=== PATIENT | male | born 1995 | race Caucasian/White ===

== ENCOUNTER 2018-06-27 20:44 | Emergency (ER) | payer BC ==
--- NOTE | 2018-06-27 20:58 | EDPHY ---
H & P Stated Complaint: Stiff neck, nausea, generalized weakness, Time Seen by Provider: 06/27/18 20:57 - Personal History Current Tetanus Diphtheria and Acellular Pertussis (TDAP): Yes - Medical/Surgical History Hx Asthma: No Hx Chronic Respiratory Disease: No Hx Diabetes: No Hx Cardiac Disease: No Hx Renal Disease: No Hx Cirrhosis: No Hx Alcoholism: No Hx HIV/AIDS: No Hx Splenectomy or Spleen Trauma: No Other PMH: Denies - Social History Smoking Status: Never smoked Constitutional: Initial Vital Signs Temperature (C) 37.0 C 06/27/18 20:52 Heart Rate 78 06/27/18 20:52 Respiratory Rate 18 06/27/18 20:52 Blood Pressure 119/80 06/27/18 20:52 O2 Sat (%) 97 06/27/18 20:52 O2 Delivery Mode Room Air Allergies/Adverse Reactions: Sulfa (Sulfonamide Antibiotics) Allergy (Verified 06/27/18 20:52) Home Medications: Medication Instructions Recorded Ibuprofen [Motrin] 800 mg PO Q8 #20 tab 06/27/18 Medical Decision Making ED Course/Re-evaluation: CHIEF COMPLAINT: Neck pain, chills, nausea HISTORY OF PRESENT ILLNESS: This patient is a 22 year old male complaining of neck pain, chills, nausea. His symptoms began about two days ago and have worsened since onset. He complains of associated dizziness beginning today. He has pain with range of motion of his neck, particularly in the area of his right paraspinous muscle. He has not vomited. He denies headache, chest pain, shortness of breath, abdominal pain, diarrhea, numbness or paresthesias in his extremities, confusion , or other associated symptoms. He denies recent trauma. REVIEW OF SYSTEMS: A comprehensive 10 system review of systems is otherwise negative aside from elements mentioned in the history of present illness and medical decision making. PHYSICAL EXAM: HR, BP, O2 Sat, RR. Temp noted General Appearance: Alert, well hydrated, appropriate, and non-toxic appearing. Head: Atraumatic without scalp tenderness or obvious injury Eyes: Pupils equal, round, reactive to light and accommodation, EOMI, no trauma , no injection. Ears: Clear bilaterally, no perforation, normal landmarks Nose: Atraumatic, no rhinorrhea, clear. Throat: There is no erythema or exudates, no lesions, normal tonsils, mucus membranes moist. Neck: Supple. Posterior lymphadenopathy. Respiratory: No retractions, no distress, no wheezes, and no accessory muscle use. Lungs are clear to auscultation bilaterally. Cardiovascular: Regular rate and rhythm, no murmurs, rubs, or gallops. Bilateral carotid, radial, dorsalis pedis, and posterior tibial pulses intact. Good capillary refill all extremities. Gastrointestinal: Abdomen is soft, nontender, non-distended, no masses, no rebound, no guarding, no peritoneal signs. Musculoskeletal: Normal active ROM of all extremities, atraumatic. Neurological: Alert, appropriate, and interactive. The patient has normal DTRs and non-focal cranial nerves, motor, sensory, and cerebellar exam. Skin: No rashes, good turgor, no nodules on palpation. Past medical history: Denies Past surgical history: Noncontributory Family history: Noncontributory Social history: Student at [employer]. Single. Lives in [place]. DIFFERENTIAL DIAGNOSIS: The differential diagnosis for the patient's fever included but was not limited to mononucleosis, pneumonia, urinary tract infection, viral syndrome, meningitis , and sepsis. MEDICAL DECISION MAKING: This 22 y/o male presents with two day history of worsening neck pain, chills, nausea, and dizziness. He has posterior lymphadenopathy on exam, pathognomonic for mono. Plan for monospot. Plan to administer 1L IV NS, 30mg IV Toradol. Monospot pending. It may take several hours for this to result. Monospot negative. It may be too early for this test. Plan for EBV panel. Reassessed patient. Plan to discharge home in good condition with prescription for ibuprofen for pain relief. Follow up and return precautions discussed. He has been advised to avoid contact sports. - Data Points Laboratory Results: 06/27/18 06/27/18 21:42 21:42 EBV Capsid Ag IgG Ab Pending EBV Capsid Ag IgM Ab Pending EBV Nuclear Antigen Ab Pending EBV Interpretation Pending Monoscreen NEGATIVE (NEGATIVE) Medications Given: Discontinued Medications Sodium Chloride (Ns) 1,000 mls @ 0 mls/hr IV EDNOW ONE; Wide Open PRN Reason: Protocol Stop: 06/27/18 21:36 Last Admin: 06/27/18 21:44 Dose: 1,000 mls Ketorolac Tromethamine (Toradol) 30 mg IVP EDNOW ONE Stop: 06/27/18 21:36 Last Admin: 06/27/18 21:45 Dose: 30 mg Departure - Departure Disposition: Home, Routine, Self-Care Clinical Impression: Mononucleosis Condition: Good Instructions: Ibuprofen (By mouth), Mononucleosis (ED) Additional Instructions: 1. Follow up with your primary care provider. 2. Rest. Stay well hydrated. Avoid contact sports or any activities that could cause splenic injury. 3. Take ibuprofen as prescribed as needed for pain. 4. Return for high fever, uncontrollable vomiting, severe neck pain or headache , chest pain, shortness of breath, or other worsening of condition. Referrals: Lily Montes MD [[facility] Primary Care Provider] - As per Instructions Prescriptions: Ibuprofen [Motrin] 800 mg PO Q8 #20 tab Report Scribed for: Raymond Mckeon Report Scribed by: Melissa Dunlap Date of Report: 06/27/18 Time of Report: 21:37
[2018-06-27] MEDS ORDERED: NS 1,000 ML IV ONE (21:35)
[2018-06-27] MEDS ORDERED: KETOROLAC 30 MG/1 ML SDV IVP ONE (21:35)
[2018-06-27 22:07] VITALS: BP 120/80
== END 2018-06-27 22:19 | disposition home or self-care (01) ==
DX: B27.90 Infectious mononucleosis, unspecified without complication (principal); E86.9 Volume depletion, unspecified
CPT/HCPCS: 86664-90; 86665-90; 96374; J1885

== ENCOUNTER 2018-08-14 11:36 | Emergency (ER) | payer BC ==
[2018-08-14] MEDS ORDERED: KETOROLAC 30 MG/1 ML SDV IVP ONE (11:56)
[2018-08-14] MEDS ORDERED: ONDANSETRON 4 MG/2 ML VIAL IVP ONE (11:56)
[2018-08-14] MEDS ORDERED: NS 1,000 ML IV ONE (11:56)
--- NOTE | 2018-08-14 11:56 | EDPHY ---
H & P Stated Complaint: Headache, nausea, neck pain Time Seen by Provider: 08/14/18 11:51 HPI/ROS: CHIEF COMPLAINT: Headache, neck pain and fever HISTORY OF PRESENT ILLNESS: The patient presents the ED with several days of headache, neck pain and fever to 101 degrees. The patient sounds as if he was diagnosed clinically with a possible viral meningitis about a month ago. He did not undergo lumbar puncture at that point time. He had improvement of his symptoms. He reports that over the past several days he has developed recurrent symptoms of a fever, headache and some slight neck discomfort. The patient denies significant cough or sore throat. He denies any abdominal pain vomiting or diarrhea. He does report mild associated nausea. He did take ibuprofen earlier today. The patient denies any acute numbness or weakness. The patient denies any diplopia or vision changes. He has no significant past medical history. REVIEW OF SYSTEMS: A comprehensive 10 point review of systems is otherwise negative aside from elements mentioned in the history of present illness. Source: Patient Exam Limitations: No limitations - Personal History Current Tetanus Diphtheria and Acellular Pertussis (TDAP): Yes - Medical/Surgical History Hx Asthma: No Hx Chronic Respiratory Disease: No Hx Diabetes: No Hx Cardiac Disease: No Hx Renal Disease: No Hx Cirrhosis: No Hx Alcoholism: No Hx HIV/AIDS: No Hx Splenectomy or Spleen Trauma: No Other PMH: Clinically diagnosed with viral menigitis 06/2018 - Social History Smoking Status: Never smoked - Physical Exam Exam: General Appearance: Alert, no distress Eyes: Pupils equal and round no pallor or injection ENT, Mouth: Mucous membranes moist Respiratory: There are no retractions, lungs are clear to auscultation Cardiovascular: Regular rate and rhythm Gastrointestinal: Abdomen is soft and nontender, no masses, bowel sounds normal Neurological: A&O, normal motor function, normal sensory exam, normal cranial nerves Skin: Warm and dry, no rashes Musculoskeletal: Neck is supple nontender, mild meningeal symptoms Extremities: symmetrical, full range of motion Psychiatric: Patient is oriented X 3, there is no agitation Constitutional: Initial Vital Signs Temperature (C) 37.1 C 08/14/18 11:39 Heart Rate 85 08/14/18 11:39 Respiratory Rate 16 08/14/18 11:39 Blood Pressure 119/77 08/14/18 11:39 O2 Sat (%) 97 08/14/18 11:39 O2 Delivery Mode Room Air Allergies/Adverse Reactions: Sulfa (Sulfonamide Antibiotics) Allergy (Verified 06/27/18 20:52) Home Medications: Medication Instructions Recorded Ibuprofen [Motrin] 800 mg PO Q8 #20 tab 06/27/18 Antid Depressant 08/14/18 oxyCODONE/APAP 5/325 [Percocet 1 - 2 tab PO Q6-8PRN PRN #20 tab 08/14/18 5/325 (RX)] Medical Decision Making Procedures: Procedure: Lumbar puncture. Indication: headache After verbal informed consent from patient explaining the risks including infection, bleeding, and neurologic damage, a lumbar puncture was performed after the patient was prepped and draped in the usual fashion. The back was anesthetized with 1% lidocaine. Approximately 4 cc of clear fluid was obtained. Opening pressure was not obtained. There were no complications. The procedure was performed by myself. ED Course/Re-evaluation: The patient presents to the ED with a viral syndrome with mild meningeal symptoms. The patient is noted to be neurologically intact. The patient had an IV established. He was treated with IV fluids and Toradol. He was verbally consented to undergo lumbar puncture which was performed by myself without complication at 1:30 p.m.. The patient is spinal fluid analysis is consistent with a viral meningitis. I did ban Ramos. The patient is comfortable and understands that he should return to the ED immediately for markedly worsening symptoms or other concerns. The patient does have a primary care provider who can follow up on the results of his culture. We have also sent an enterovirus PCR. The patient is comfortable being discharged home. He will be advised to rest, increase his fluid intake, and follow up with his primary care provider for any ongoing needs. He is advised to return to the ED for any markedly worsening symptoms, the development of acute neurologic symptoms, intractable vomiting or other concerns. - Data Points Laboratory Results: Laboratory Results 08/14/18 11:50 08/14/18 11:50 08/14/18 08/14/18 08/14/18 13:26 13:26 11:50 WBC RBC Hgb Hct MCV MCH MCHC RDW Plt Count MPV Neut % (Auto) Lymph % (Auto) [place] % (Auto) Eos % (Auto) Baso % (Auto) Nucleat RBC Rel Count Absolute Neuts (auto) Absolute Lymphs (auto) Absolute Monos (auto) Absolute Eos (auto) Absolute Basos (auto) Absolute Nucleated RBC Immature Gran % Immature Gran # Sodium 136 mEq/L mEq/L (135-145) Potassium 4.5 mEq/L mEq/L (3.3-5.0) Chloride 99 mEq/L mEq/L (97-110) Carbon Dioxide 31 mEq/l mEq/l (22-31) Anion Gap 6 mEq/L mEq/L (6-14) BUN 17 mg/dL mg/dL (7-23) Creatinine 0.8 mg/dL mg/dL (0.7-1.3) Estimated GFR > 60 Glucose 84 mg/dL mg/dL (70-100) Calcium 8.9 mg/dL mg/dL (8.5-10.4) Fl Pathologist Review Pending CSF Tube Number 4 1 CSF Appearance CLEAR CLEAR (CLEAR) (CLEAR) CSF Color COLORLESS COLORLESS (COLORLESS) (COLORLESS) CSF Supernatant COLORLESS COLORLESS (COLORLESS) (COLORLESS) CSF WBC 72 /mm3 H /mm3 40 /mm3 H /mm3 (0-5) (0-5) CSF RBC 0 /mm3 /mm3 0 /mm3 /mm3 (0-0) (0-0) CSF Neutrophils % Pending 65 % H % (0-6) CSF Lymphocytes % 21 % % (0-100) CSF Monos/Macrophage % 14 % % (0-45) CSF Glucose 57 mg/dL mg/dL (50-75) CSF Total Protein 50 mg/dL mg/dL (12-60) 08/14/18 11:50 WBC 5.86 10^3/uL 10^3/uL (3.80-9.50) RBC 5.59 10^6/uL 10^6/uL (4.40-6.38) Hgb 16.2 g/dL g/dL (13.7-17.5) Hct 47.2 % % (40.0-51.0) MCV 84.4 fL fL (81.5-99.8) MCH 29.0 pg pg (27.9-34.1) MCHC 34.3 g/dL g/dL (32.4-36.7) RDW 13.1 % % (11.5-15.2) Plt Count 192 10^3/uL 10^3/uL (150-400) MPV 10.1 fL fL (8.7-11.7) Neut % (Auto) 56.8 % % (39.3-74.2) Lymph % (Auto) 26.6 % % (15.0-45.0) [place] % (Auto) 14.8 % H % (4.5-13.0) Eos % (Auto) 1.2 % % (0.6-7.6) Baso % (Auto) 0.3 % % (0.3-1.7) Nucleat RBC Rel Count 0.0 % % (0.0-0.2) Absolute Neuts (auto) 3.32 10^3/uL 10^3/uL (1.70-6.50) Absolute Lymphs (auto) 1.56 10^3/uL 10^3/uL (1.00-3.00) Absolute Monos (auto) 0.87 10^3/uL H 10^3/uL (0.30-0.80) Absolute Eos (auto) 0.07 10^3/uL 10^3/uL (0.03-0.40) Absolute Basos (auto) 0.02 10^3/uL 10^3/uL (0.02-0.10) Absolute Nucleated RBC 0.00 10^3/uL 10^3/uL (0-0.01) Immature Gran % 0.3 % % (0.0-1.1) Immature Gran # 0.02 10^3/uL 10^3/uL (0.00-0.10) Sodium Potassium Chloride Carbon Dioxide Anion Gap BUN Creatinine Estimated GFR Glucose Calcium Fl Pathologist Review CSF Tube Number CSF Appearance CSF Color CSF Supernatant CSF WBC CSF RBC CSF Neutrophils % CSF Lymphocytes % CSF Monos/Macrophage % CSF Glucose CSF Total Protein Microbiology Results: MICROBIOLOGY 08/14/18 13:26 Cerebral Spinal Fluid Gram Stain - Final 08/14/18 12:05 Nasal, Sinus - Other Respiratory Panel (PCR) - Final No Organism Detected Medications Given: Discontinued Medications Sodium Chloride (Ns) 1,000 mls @ 0 mls/hr IV EDNOW ONE; Wide Open PRN Reason: Protocol Stop: 08/14/18 11:57 Last Admin: 08/14/18 12:02 Dose: 1,000 mls Ketorolac Tromethamine (Toradol) 30 mg IVP EDNOW ONE Stop: 08/14/18 11:57 Last Admin: 08/14/18 12:02 Dose: 30 mg Ondansetron HCl (Zofran) 4 mg IVP EDNOW ONE Stop: 08/14/18 11:57 Last Admin: 08/14/18 12:02 Dose: 4 mg Departure - Departure Disposition: Home, Routine, Self-Care Clinical Impression: Viral meningitis Condition: Good Instructions: Viral Meningitis (ED) Additional Instructions: 1. Take Ibuprofen or Motrin 600 mg by mouth three times a day. 2. Percocet as needed for severe pain 3. Please have your primary care provider follow up on the results which are pending. 4. Return to the ED for intractable headache, worsening symptoms, numbness, weakness, rash or other concerns. Referrals: MANDA DICKENS [Primary Care Provider] - As per Instructions Prescriptions: oxyCODONE/APAP 5/325 [Percocet 5/325 (RX)] 1 - 2 tab PO Q6-8PRN PRN #20 tab PRN Reason: for pain
[2018-08-14 12:06] LABS: PLATELET COUNT 192 10^3/uL (150-400)
[2018-08-14 15:14] VITALS: BP 130/90
== END 2018-08-14 15:13 | disposition home or self-care (01) ==
PROC: 009U3ZX Drainage of Spinal Canal, Percutaneous Approach, Diagnostic (ICD-10-PCS; principal; 2018-08-14)
DX: A87.9 Viral meningitis, unspecified (principal); E86.9 Volume depletion, unspecified
CPT/HCPCS: 87798-90; 96374; J1885; J2405